=== PATIENT | female | born 1990 | race Caucasian/White ===

== ENCOUNTER 2017-04-06 19:40 | Emergency (ER) | payer OTHER ==
[~2017-04-06] VITALS: Ht 162.6 cm; Wt 71.2 kg
[2017-04-06 19:40] VITALS: BP 110/71
[~2017-04-06 19:40] MED LIST: AMOX500T PO; ONDA4TAB10 SL; OXYC-323 PO
[2017-04-06] MEDS ORDERED: PRED20TA PO (19:54)
--- NOTE | 2017-04-06 20:00 | PHYS DOC ---
General Chief Complaint: DENTAL PROBLEM Stated Complaint: Rt. Jaw Pain Time Seen by MD: 19:52 Source: patient Exam Limitations: no limitations Problems: History of Present Illness Initial Comments Patient is a 26-year-old female 28 weeks gestation no risk factors complaining of right TMJ pain. Patient states that she has very infrequent exacerbations of severe right TMJ pain. In the past she has taken NSAIDs to reduce inflammation and resolve her discomfort however with her current status those medications are contraindicated. She says she called her FUNERAL PLANNING COUNSELOR earlier today and recommendations were [id number] Tylenol or go to the emergency department. I discussed medications and with her at length, she says that these exacerbations typically gets so bad that she is unable to open her mouth at all and unable to eat or drink. I advised her that the risks and benefits of potential harm versus personal comfort had to be weighed in situations like this in the patient expressed agreement. She says the pain is sharp and throbbing 10 over 10 and says she does not have difficulty opening her mouth at this time. She's had no abdominal pain and low back pain contractions or any type of vaginal discharge. Timing/Duration: yesterday Severity: severe Location: other Prearrival Treatment: over the counter meds Modifying Factors: improves with other Associated Symptoms: other Allergies: Coded Allergies: Fish Containing Products (Verified Allergy, Severe, Anaphylaxis, 08/07/15) hydromorphone (Verified Allergy, Intermediate, Vomiting, 01/18/16) Past Medical History Medical History: other (TMJ disorder) Surgical History: other ( section, tonsillectomy) Social History Smoker: non-smoker Alcohol: none Drugs: none Constitutional: denies chills, denies diaphoresis, denies fever, denies malaise Ears: denies dizziness, denies pain, denies tinnitus Nose: denies clots, denies congestion, denies epistaxis Mouth: clots Throat: denies pain, denies swelling, denies neck stiffness, denies painful swallowing, denies difficulty with fluids Respiratory: denies cough, denies shortness of breath Cardiovascular: denies chest pain, denies palpitations, denies syncope Gastrointestinal: denies abdominal pain, denies nausea, denies vomiting Musculoskeletal: see HPI Neurological: see HPI Physical Exam General Appearance: WD/WN, no apparent distress Eyes: bilateral eye normal inspection, bilateral eye PERRL, bilateral eye EOMI Nose: normal inspection Mouth/Throat: normal mouth inspection, pharynx normal, other (right TMJ tenderness with clicking noted no palpable swelling or deformity) Neck: non-tender, supple Cardiovascular/Respiratory: normal peripheral pulses, no respiratory distress Gastrointestinal: other (gravid consistent with dates) 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 Ultimately we discussed prednisone and the patient states that she will take it the shortest duration possible until her symptoms begin to resolve. She agrees to follow-up tomorrow at least by phone with her FUNERAL PLANNING COUNSELOR. Risks and benefits of taking the medication versus not taking the medication were discussed at length with the patient, risks of taking the medication were possible premature and teratogenicity. Signs and symptoms to monitor as well as indications for urgent return to the department were discussed the patient's questions were answered to her satisfaction. She expressed agreement and understanding with treatment plan. Departure Time of Disposition: 19:56 Disposition: 01 HOME, SELF-CARE Diagnosis: right TMJ pain, incidental Condition: GOOD Patient Instructions: Medicines During , Temporomandibular Joint Pain- Brief Additional Instructions: As discussed it is best for your developing child to take nothing stronger than Tylenol. Due to the concern that symptoms might progress as they have in the past and you may be unable to eat or drink putting both you and your developing child at risk as short as possible course of prednisone may be used to decrease the inflammation preserving her ability to eat or drink. Discontinue taking it as soon as your symptoms begin to resolve. Prescription: Prednisone 20 mg by mouth twice a day for 3 days. Notify your FUNERAL PLANNING COUNSELOR by phone tomorrow and follow-up with them as directed. Return to ED with new or changing symptoms. ZITA HAYS DO Apr 06, 2017 20:00
[2017-04-06] MEDS ORDERED: predniSONE 20 MG TABLET PO ONE (20:15)
== END 2017-04-06 20:06 | disposition home or self-care (01) ==
LOC: ER 19:40
DX: O99.612 Diseases of the digestive system complicating pregnancy, second trimester (principal); M26.622 Arthralgia of left temporomandibular joint; Z3A.28 28 weeks gestation of pregnancy; Z88.5 Allergy status to narcotic agent; Z91.013 Allergy to seafood
CPT/HCPCS: 99283; J7512

== ENCOUNTER 2017-04-11 13:17 | Emergency (ER) | payer OTHER ==
[~2017-04-11 13:17] MED LIST changes: +PRED20TA PO
[2017-04-11 13:20] VITALS: BP 137/81
--- NOTE | 2017-04-11 13:36 | PHYS DOC ---
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 She was seen in here in our ER and given pain medications and follow up with her CEREAL MILLER. He'll be given as asked that she get a shot of Toradol here in our ER secondary to the fact he did not have any office. Although she is 28 weeks he did send her with an authorization for getting an IM shot 1 of 60 mg. She understands the risks to the child is minimized at this late stage of development. She is not having any problems swallowing, no change in voice, no other complaints of headache or neck stiffness at this time. Patient's pain began after she felt a pop in her jaw when it was cold outside. Review of Systems Review of Systems Constitutional: Denies fever or chills [][] HENT: Denies nasal congestion or sore throat [] Neurologic: Denies headache, focal weakness or sensory changes [] Allergies Allergies Allergies Coded Allergies Type Severity Reaction Last Updated Verified Fish Containing Products Allergy Severe Anaphylaxis 08/07/15 Yes hydromorphone Allergy Intermediate Vomiting 01/18/16 Yes Physical Exam Physical Exam Vital signs recorded chart within normal limits. Constitutional: Well developed, well nourished, no acute distress, non-toxic appearance. [] HENT: Normocephalic, atraumatic, bilateral external ears normal, oropharynx moist, no oral exudates, nose normal. Normal range of motion of the jaw. She has marked tenderness to palpation over the TMJ on the right with no soft tissue swelling. [] Eyes: PERRLA, EOMI, conjunctiva normal, no discharge. [] Neck: Normal range of motion, no tenderness, supple, no stridor. Has no anterior cervical lymphadenopathy[] Cardiovascular:Heart rate regular rhythm, no murmur [] Lungs & Thorax: Bilateral breath sounds clear to auscultation [] Skin: Warm, dry, no erythema, no rash. [] Neurologic: Alert and oriented X 3, EKG EKG [] Radiology/Procedures Radiology/Procedures [] Course & Med Decision Making Course & Med Decision Making Pertinent Labs and Imaging studies reviewed. (See chart for details) []Presents with TMJ syndrome known to her and her CEREAL MILLER. He asked that she be treated with a shot of its here in the emergency Department secondary to the fact that he does not have the medication in his office. She was given an IM dose of Toradol 1 we discussed the risks potentially to the developing child which she is well aware of and willing to accept. Dragon Disclaimer Dragon Disclaimer This electronic medical record was generated, in whole or in part, using a voice recognition dictation system. Departure Departure: Impression: Primary Impression: TMJ arthralgia Disposition: HOME, SELF-CARE Condition: STABLE Referrals: MERLE CONTE MD (PCP) Patient Instructions: Temporomandibular Joint Pain-Brief, Temporomandibular Problems Additional Instructions: discharge: I've spoken with the patient and/or caregivers. I've explained the patient's condition, diagnosis and treatment plan based on information available to me at this time. I've answered the patient's and/or caregivers questions and addressed any concerns. The patient and/or caregivers have a good understanding the patient's diagnosis, condition and treatment plan as can be expected at this point. Vital signs have been stabilized. The patient's condition is stable for discharge from the emergency department. The patient will pursue further outpatient evaluation with her primary care provider or other designated consulting physician as outlined in the discharge instructions. Patient and/or caregivers are agreeable to this plan of care and follow-up instructions have been explained in detail. The patient and/or caregivers have received these instructions in written format and expressed understanding of these discharge instructions. The patient and her caregivers are aware that if any significant change in condition or worsening of symptoms should prompt him to immediately return to this of the closest emergency department. If an emergent department is not readily available I would encourage him to call 911. CHIN MCCANN MD Apr 11, 2017 13:36
[2017-04-11] MEDS ORDERED: KETOROLAC 60 MG/2 ML VIAL. IM ONE (13:45)
[2017-04-12] MEDS ORDERED: OXYC-328 PO (02:32)
== END 2017-04-11 13:50 | disposition home or self-care (01) ==
LOC: ER 13:17
DX: O26.892 Other specified pregnancy related conditions, second trimester (principal); M26.621 Arthralgia of right temporomandibular joint; Z3A.28 28 weeks gestation of pregnancy; Z88.5 Allergy status to narcotic agent; Z91.013 Allergy to seafood
CPT/HCPCS: 96372; 99283; J1885

== ENCOUNTER 2017-04-12 01:49 | Emergency (ER) | payer OTHER ==
[~2017-04-12] VITALS: Ht 162.6 cm; Wt 69.1 kg
[2017-04-12 01:49] VITALS: BP 118/78
--- NOTE | 2017-04-12 01:51 | ED.ADGEN ---
Past History Past Medical History: Other Past Surgical History: , Tonsillectomy Alcohol Use: None Drug Use: None Adult General Chief Complaint Chief Complaint ".. I have trigeminal neuralgia.. and TMJ.. here on the right... " HPI HPI Patient is a 26 year old female who presents with pt. here earlier and received Toradol injected per Dr. Buck. Pt. is 28 weeks gravid. Pt. had TMJ before, and it always in past responded to Toradol. Pt. can not take NSAIDS orally because previous gastric surgery and sleeve placement. Pt. requesting additional meds tonight because still having marked pain. Dental health appears good. Review of Systems Review of Systems Constitutional: Denies fever or chills [] Eyes: Denies change in visual acuity, redness, or eye pain [] HENT: Denies nasal congestion or sore throat [] Respiratory: Denies cough or shortness of breath [] Cardiovascular: No additional information not addressed in HPI [] GI: Denies abdominal pain, nausea, vomiting, bloody stools or diarrhea [] : Denies dysuria or hematuria [] Musculoskeletal: Denies back pain or joint pain [] Integument: Denies rash or skin lesions [] Neurologic: Denies headache, focal weakness or sensory changes [] Endocrine: Denies polyuria or polydipsia [] All other systems were reviewed and found to be within normal limits, except as documented in this note. Family History Family History Non-contributory Current Medications Current Medications Current Medications Medications (Trade) Dose Ordered Sig/Berna Start Time Stop Time Status Last Admin Dose Admin Lidocaine/ Epinephrine (Let Topical) 3 ml 1X ONCE 04/12/17 02:45 04/12/17 02:46 DC 04/12/17 02:15 3 ML Ondansetron HCl (Zofran Odt) 8 mg 1X ONCE 04/12/17 03:30 04/12/17 03:30 DC 04/12/17 03:06 8 MG Oxycodone/ Acetaminophen (Percocet 10/325) 1 tab 1X ONCE 04/12/17 02:30 04/12/17 02:32 DC 04/12/17 02:07 1 TAB See Nursing. Allergies Allergies Allergies Coded Allergies Type Severity Reaction Last Updated Verified Fish Containing Products Allergy Severe Anaphylaxis 08/07/15 Yes hydromorphone Allergy Intermediate Vomiting 01/18/16 Yes Physical Exam Physical Exam Constitutional: Well developed, well nourished, acute distress, non-toxic appearance. [] HENT: Normocephalic, atraumatic, bilateral external ears normal, oropharynx moist, no oral exudates, nose normal. []TMJ / Trigeminal tenderness. Eyes: PERRLA, EOMI, conjunctiva normal, no discharge. [] Neck: Normal range of motion, no tenderness, supple, no stridor. [] Cardiovascular:Heart rate regular rhythm, no murmur [] Lungs & Thorax: Bilateral breath sounds clear to auscultation [] Abdomen: Bowel sounds normal, soft, no tenderness, no masses, no pulsatile masses. [] Scar. Gravid. Skin: Warm, dry, no erythema, no rash. [] Back: No tenderness, no CVA tenderness. [] Extremities: No tenderness, no cyanosis, no clubbing, ROM intact, no edema. [] Neurologic: Alert and oriented X 3, normal motor function, normal sensory function, no focal deficits noted. [] Psychologic: Affect normal, judgement normal, mood normal. [] Current Patient Data Vital Signs Vital Signs Date Time Temp Pulse Resp B/P (MAP) Pulse Ox O2 Delivery O2 Flow Rate FiO2 04/12/17 01:49 97.5 95 18 100 Room Air EKG EKG [] Radiology/Procedures Radiology/Procedures [] Course & Med Decision Making Course & Med Decision Making Pertinent Labs and Imaging studies reviewed. (See chart for details). Follow up with Ob. Follow up with Dentist/ oral surgery. Trial of LET. Percocet for very severe pain only. Consider trial Voltaren topical if approved by Ob. [] Final Impression Final Impression 1. TMJ/ Trigeminal Neuralgia[] Problems: Dragon Disclaimer Dragon Disclaimer This electronic medical record was generated, in whole or in part, using a voice recognition dictation system. CLIFFORD LINDQUIST MD Apr 12, 2017 01:51
[2017-04-12] MEDS ORDERED: LIDOCAINE/EPI/TETRACAINE TOPICAL GEL 3 ML. TP ONE ×2 (02:14→02:45)
[2017-04-12] MEDS ORDERED: oxyCODONE/APAP 10/325 1 TAB TABLET PO ONE (02:30)
[2017-04-12] MEDS ORDERED: OXYC-328 PO (02:32)
[2017-04-12] MEDS ORDERED: ONDANSETRON ODT 4 MG TAB.RAPDIS ONE (03:05)
[2017-04-12] MEDS ORDERED: ONDANSETRON ODT 4 MG TAB.RAPDIS PO ONE (03:30)
== END 2017-04-12 03:08 | disposition home or self-care (01) ==
LOC: ER 01:49
DX: O99.353 Diseases of the nervous system complicating pregnancy, third trimester (principal); G50.0 Trigeminal neuralgia; M26.601 Right temporomandibular joint disorder, unspecified; Z3A.28 28 weeks gestation of pregnancy; Z88.5 Allergy status to narcotic agent; Z91.013 Allergy to seafood
CPT/HCPCS: 99284; Q0162

== ENCOUNTER 2017-04-17 14:37 | Emergency (ER) | payer OTHER ==
[~2017-04-17] VITALS: Ht 162.6 cm; Wt 69.1 kg
[~2017-04-17 14:37] MED LIST changes: +OXYC-328 PO
--- NOTE | 2017-04-17 15:22 | PHYS DOC ---
Past History Past Medical History: No Pertinent History, Other Past Surgical History: , Tonsillectomy Smoking: Non-smoker Alcohol Use: None Drug Use: None Adult General Chief Complaint Chief Complaint: VOMITING IN [facility] HPI 26-year-old female patient at 29 weeks of gestation states she has had nausea and occasional vomiting during her but since this morning she had 9 episodes of nonbloody vomiting. Patient states she twisted. Of Zofran with improvement of her condition and unable to take her home medication and amoxicillin for recently diagnosis of sinusitis. Patient complaining of constipation and states her last bowel movement was yesterday. Patient complaining of epigastric aching pain during episodes of vomiting. Patient denies vaginal bleeding or abdominal contraction. Review of Systems Review of Systems Constitutional: Denies fever or chills [] Eyes: Denies change in visual acuity, redness, or eye pain [] HENT: Denies nasal congestion or sore throat [] Respiratory: Denies cough or shortness of breath [] Cardiovascular: No additional information not addressed in HPI [] GI: Reports abdominal pain, nausea, vomiting, constipation, denies bloody stools or diarrhea [] : Denies dysuria or hematuria [] Musculoskeletal: Denies back pain or joint pain [] Integument: Denies rash or skin lesions [] Neurologic: Denies headache, focal weakness or sensory changes [] Endocrine: Denies polyuria or polydipsia [] All other systems were reviewed and found to be within normal limits, except as documented in this note. Allergies Allergies Allergies Coded Allergies Type Severity Reaction Last Updated Verified Fish Containing Products Allergy Severe Anaphylaxis 08/07/15 Yes hydromorphone Allergy Intermediate Vomiting 01/18/16 Yes Physical Exam Physical Exam Constitutional: Well developed, well nourished, mild distress, non-toxic appearance. [] HENT: Normocephalic, atraumatic, bilateral external ears normal, oropharynx dry , no oral exudates, nose normal. [] Eyes: PERRLA, EOMI, conjunctiva normal, no discharge. [] Neck: Normal range of motion, no tenderness, supple, no stridor. [] Cardiovascular:Heart rate regular rhythm, no murmur [] Lungs & Thorax: Bilateral breath sounds clear to auscultation [] Abdomen: Bowel sounds normal, soft, no tenderness, no masses, no pulsatile masses, gravid abdomen without contracturing or tenderness. [] Skin: Warm, dry, no erythema, no rash. [] Back: No tenderness, no CVA tenderness. [] Extremities: No tenderness, no cyanosis, no clubbing, ROM intact, no edema. [] Neurologic: Alert and oriented X 3, normal motor function, normal sensory function, no focal deficits noted. [] Psychologic: Affect normal, judgement normal, mood normal. [] EKG EKG [] Radiology/Procedures Radiology/Procedures [] Course & Med Decision Making Course & Med Decision Making Pertinent Labs reviewed. (See chart for details) Patient treated with IV fluid and Zofran and Reglan and felt better. UA is pending. Patient care transferred to Dr. Pace at 1800. []This is a 26-year-old female who is 4 para 3 who presents to the ER today secondary to nausea vomiting. Patient's last menstrual period was August 2016. Her estimated date of confinement is June 30, 2017. Patient reports that she is 29 weeks and 3 days . Patient has a history significant for preeclampsia the past, 3 in the past, as recently surgery, patient reports had gastric sleeve surgery in 2012 and was 124 pounds. Patient denies any history of hypertension diabetes lung, liver, kidney problems. Patient reports she does have a allergy to shellfish. Patient's OB doctor is , and she is planning to deliver that over [facility]. Patient denies any fevers shakes chills. Patient has any diarrhea. Patient reports her last bowel movement was yesterday her patient reports no flatus since yesterday. Patient reports her last by mouth intake was this morning when she tried eating a small amount of food and she was unable keep it down. Patient reports last time she ate anything was yesterday when she ate black beans without a problem. Patient reports only symptoms started this morning. Patient reports that she's had a sinus infection and has been on amoxicillin for 5 days now. Patient reports she's never had any problems with nausea vomiting. Amoxicillin the past. Patient denies any dysuria frequency urgency. Patient reports that she's had decreased urinary output. Patient has any vaginal bleeding or abdominal cramping. Patient has any pelvic cramping. Patient reports only time her stomach hurts is when she throws up otherwise she has no discomfort. Patient was reevaluated by me after 2 L normal saline the patient still able tolerate by mouth's. The patient's labs were unremarkable except for large amount ketones in her urine. Patient has no anion gap. Patient's urine appeared hemoconcentrated. Patient's vital signs were all stable. Patient is not tachycardic. Patient's abdominal exam was soft and gravid approximately 6 fingerbreadths above the umbilicus,. Patient has been given a small amount of liquids here in the ED had further emesis. Given her large ketones patient was given a third liter with D5 normal saline as well as Reglan and Zofran. Given the patient's history of surgery and no BMs and no flatus for 24 hours I discussed with the patient my concern with possible obstruction. This does not appear to be clear hyperemesis gravidarum as the patient did not have any significant morning sickness and the patient is currently at 29 weeks gestation. The patient had agreed to a 1 view upright KUB in order to assess for obvious obstruction. Patient does understand the risk of radiation to the baby and she has agreed given the risks obstruction on her prior surgery. Patient reports that this does not feel anything like her prior episodes of nausea with prior pregnancies. Patient's KUB did not reveal any significant obstruction. There were 2 air- fluid levels in the right colon however no evidence of significant air-fluid levels, free air. I discussed with the patient my concern regarding her inability to tolerate by mouth's. Patient reports that she feels significantly better after the Reglan and Zofran. Patient reported that she wanted to try one last time of by mouth intake with liquids and crackers to see if she can tolerate. I discussed the patient that if she is unable to keep down any liquids at this time that I would prefer to transfer her to [facility] for admission. Patient was given a bottle of Sprite which she tolerated well. Patient then requested crackers which she tolerated well. I was summoned by her significant other who is requested that I reevaluate her since she is now requesting to go home. Upon my arrival to room she is fully dressed and irregular garb, looks great, smiling and laughing and says that she feels 100% improved and would like to try to go home. I have recommended to the patient that she return immediately she's has further episodes of inability to tolerate by mouth's or she continues to not been any flatus or BMs. Patient understands these risks and will return the ER if she has any worsening symptoms. Patient was discharged home in stable condition. Dragon Disclaimer Dragon Disclaimer This electronic medical record was generated, in whole or in part, using a voice recognition dictation system. Departure Departure: Impression: Primary Impression: Hyperemesis gravidarum Additional Impression: Nausea & vomiting Disposition: HOME, SELF-CARE Condition: IMPROVED Referrals: MERLE CONTE MD (PCP) Patient Instructions: Abdominal Pain During , Dehydration, Adult, Diet - Hyperemesis Gravidarum Scripts Promethazine HCl (Phenergan) 25 Mg Supp.rect 25 MG RC Q6HRS Y for NAUSEA/VOMITING, #12 SUPP.RECT Prov: ANDREA PACE MD 04/17/17 Ondansetron (ZOFRAN ODT) 4 Mg Tab.rapdis 1 TAB SL Q8HRS for NAUSEA, #15 TAB Prov: ANDREA PACE MD 04/17/17 Problem Qualifiers JARON SHAFER MD Apr 17, 2017 15:22 ANDREA PACE MD Apr 17, 2017 21:29
[2017-04-17] MEDS ORDERED: IV NORMAL SALINE 1,000ML 1,000 ML IV ONE (15:30)
[2017-04-17] MEDS ORDERED: IV NORMAL SALINE 1,000ML 1,000 ML IV SCH (15:30)
[2017-04-17 15:41] LABS: BASO # 0.1 x10^3/uL (0.0-0.2); BASO % 1 % (0-3); EOS % 0 % (0-3); HEMATOCRIT 31.3 % (36.0-47.0); HEMOGLOBIN 10.1 g/dL (12.0-15.5); LYMPH # 0.6 x10^3/uL (1.0-4.8); LYMPH % 5 % (24-48); MEAN CORPUSCULAR HEMOGLOBIN 25 pg (25-35); MEAN CORPUSCULAR HGB CONC 32 g/dL (31-37); MEAN CORPUSCULAR VOLUME 76 fL (79-100); MONO # 0.5 x10^3/uL (0.0-1.1); MONO % 4 % (0-9); NEUT # 11.9 x10^3uL (1.8-7.7); NEUT % 91 % (31-73); PLATELET COUNT 276 x10^3/uL (140-400); RED BLOOD COUNT 4.13 x10^6/uL (3.50-5.40); RED CELL DISTRIBUTION WIDTH 16.8 % (11.5-14.5); WHITE BLOOD COUNT 13.1 x10^3/uL (4.0-11.0)
[2017-04-17] MEDS ORDERED: ONDANSETRON PF 4 MG/2 ML VIAL. IV ONE ×2 (15:45→19:00)
[2017-04-17 15:52] LABS: ALBUMIN 2.5 g/dL (3.4-5.0); ALBUMIN/GLOBULIN RATIO 0.6 (1.0-1.7); CALCIUM 8.4 mg/dL (8.5-10.1); CREATININE 0.6 mg/dL (0.6-1.0); POTASSIUM 4.1 mmol/L (3.5-5.1); TOTAL BILIRUBIN 0.6 mg/dL (0.2-1.0); TOTAL PROTEIN 6.7 g/dL (6.4-8.2)
[2017-04-17] MEDS ORDERED: METOCLOPRAMIDE HCL 10 MG/2 ML VIAL. IV ONE (17:15)
[2017-04-17 18:14] LABS: BILIRUBIN,URINE NEG (NEG); CLARITY,URINE CLOUDY; COLOR,URINE YELLOW; GLUCOSE,URINE NEG (NEG)
[2017-04-17 18:15] LABS: BACTERIA,URINE FEW /HPF (0-FEW); NITRITE,URINE NEG (NEG); SQUAMOUS EPITHELIAL CELL,UR MANY /LPF; UROBILINOGEN,URINE 1 mg/dL (0.2 mg/dL)
[2017-04-17] MEDS ORDERED: IV DEXTROSE 5% - 0.9 % NACL 1,000 ML IV ONE (18:45)
[2017-04-17 21:00] VITALS: BP 112/64
[2017-04-17] MEDS ORDERED: ONDANSETRON 4MG ODT 4TABLET STARTPACK. PO ONE ×2 (21:27→21:30)
[2017-04-17] MEDS ORDERED: ONDA4TAB10 SL (21:29)
[2017-04-17] MEDS ORDERED: PROM25SU32 RC (21:29)
--- NOTE | 2017-04-18 08:00 | RAD ---
Indication: 28 week female with history of gastric sleeve. Bilious vomiting for 24 hours with no bowel movement or flatus for 24 hours. Technique: KUB radiograph Comparison: Previous study from 08/07 Findings: Visualized lung bases are clear. Heart is normal in size. No abnormally dilated bowel loops. Moderate diffuse colonic burden. No abnormal calcific densities projecting over the abdomen. Gravid uterus. No evidence of pneumoperitoneum. Visualized osseous structures are within normal limits. Impression: No abnormally dilated bowel loops to suggest bowel obstruction. Moderate diffuse colonic stool burden, patient may be constipated.
== END 2017-04-17 21:39 | disposition home or self-care (01) ==
LOC: ER 14:37
DX: O21.0 Mild hyperemesis gravidarum (principal); Z3A.29 29 weeks gestation of pregnancy; Z88.5 Allergy status to narcotic agent; Z91.013 Allergy to seafood
CPT/HCPCS: 36415; 74000; 80053; 81001; 83690; 85025; 87086; 96361; 96374; 96375; 96376; 99285; J2405; J2765; J7042; Q0162; J7030